=== PATIENT | female | born 1935 | race African-American/Black ===

== ENCOUNTER 2023-10-27 15:25 | Inpatient (IN) | payer OTHER ==
[2023-10-27] MEDS: SODIUM CHLORIDE 0.9% 500 ML INFUS.BAG IV ONE ×2 (18:12→20:33)
[2023-10-27 18:19] LABS: BASO % 0.2 % (0-2.0); HEMATOCRIT 31.6 % (32.4-45.2); HEMOGLOBIN 10.5 GM/dL (10.7-15.3); LYMPH % 8.8 % (8-40); MCH 29.7 pg (25.7-33.7); MCHC 33.2 g/dl (32.0-36.0); MEAN CELL VOLUME 89.2 fl (80-96); MEAN PLT VOLUME 7.3 fl (7.5-11.1); MONO % 7.5 % (3.8-10.2); NEUT % 83.5 % (42.8-82.8); PLATELET COUNT 419 10^3/uL (134-434); RBC 3.54 M/mm3 (3.60-5.2); RDW 14.1 % (11.6-15.6); WHITE BLOOD COUNT 12.5 K/mm3 (4.0-10.0)
[2023-10-27 18:24] LABS: INR 1.31 (0.83-1.09); PROTHROMBIN TIME (PATIENT) 14.7 SEC (9.7-13.0)
[2023-10-27 18:27] LABS: ACTIVATED PTT 31.2 SECONDS (25.2-36.5); VENOUS BASE EXCESS -4.7 mmol/L (-2-2); VENOUS PCO2 40.5 mmHg (38-52); VENOUS PH 7.33 (7.310-7.410)
[2023-10-27 18:37] LABS: POTASSIUM 4.2 mmol/L (3.5-5.1)
[2023-10-27 18:40] LABS: BLOOD UREA NITROGEN 23.4 mg/dL (7-18)
[2023-10-27 18:45] LABS: BILIRUBIN,TOTAL 0.6 mg/dL (0.2-1); TOT PROT 7.6 g/dl (6.4-8.2)
[2023-10-27 18:56] LABS: ALBUMIN 2.9 g/dl (3.4-5.0); ALK PHOS 79 U/L (45-117); ANION GAP 13 mmol/L (4-13); BILIRUBIN,TOTAL 0.7 mg/dL (0.2-1); BLOOD UREA NITROGEN 22.9 mg/dL (7-18); CALCIUM 8.9 mg/dL (8.5-10.1); CHLORIDE 102 mmol/L (98-107); CO2 21 mmol/L (21-32); GLUCOSE,RANDOM 108 mg/dL (74-106); POTASSIUM 4.4 mmol/L (3.5-5.1); SGOT/AST 21 U/L (15-37); SGPT/ALT 9 U/L (13-61); SODIUM 136 mmol/L (136-145); TOT PROT 7.6 g/dl (6.4-8.2)
[2023-10-27 20:43] LABS: EPI CELLS 21 /uL (0-25.1); HYALINE CASTS 3 /uL (0-3.1); PH,URINE 5.5 (5.0-8.0); URINE APPEARANCE CLEAR; URINE BACTERIA 202 /uL (0-1359); URINE BILIRUBIN NEGATIVE (NEGATIVE); URINE COLOR YELLOW; URINE GLUCOSE (UA) NEGATIVE (NEGATIVE); URINE KETONE 1+ (NEGATIVE); URINE LEUK ESTERASE 2+ (NEGATIVE); URINE NITRITE NEGATIVE (NEGATIVE); URINE PROTEIN 1+ (NEGATIVE); URINE WBC 33 /uL (0-25.8)
[2023-10-27 20:44] LABS: URINE RBC 24.2 /uL (0-23.9)
[2023-10-27] MEDS ORDERED: ACETAMINOPHEN INJECTION 100 ML IVPB ONE (20:45)
[2023-10-27 20:50] LABS: URINE BENZODIAZEPINES NEGATIVE (NEGATIVE)
[2023-10-27 20:51] LABS: COCAINE, UR NEGATIVE (NEGATIVE); METHADONE, UR NEGATIVE (NEGATIVE); OPIATES, URI NEGATIVE (NEGATIVE); PHENCYCLIDINE,URINE NEGATIVE (NEGATIVE); URINE AMPHETAMINES NEGATIVE (NEGATIVE); URINE BARBITURATES NEGATIVE (NEGATIVE)
[2023-10-27] MEDS: ACETAMINOPHEN 1000 MG/100 ML BAG IVPB ONE (20:57)
[2023-10-27] MEDS: MELATONIN 5 MG TABLETS PO ONE (22:12)
[2023-10-28] MEDS ORDERED: NICOTINE 7 MG/24 HOURS TOPICAL PATCH TD ONE (00:17)
[2023-10-28] MEDS ORDERED: CEFTRIAXONE 1 GM/50 ML BAG ONE (00:18)
[2023-10-28] MEDS: CEFTRIAXONE 1 GM in DEXTROSE 5%-WATER - 50 ML IVPB ONE (00:29)
[2023-10-28] MEDS: SODIUM CHLORIDE 1,000 ML IV SCH (00:29)
[2023-10-28] MEDS: NICOTINE 7 MG/24 HOURS TOPICAL PATCH TD ONE (00:29)
[2023-10-28] MEDS ORDERED: HALOPERIDOL LACTATE 5 MG/ML ONE (00:32)
[2023-10-28] MEDS: HALOPERIDOL LACTATE 5 MG/ML IM ONE (00:44)
[2023-10-28] MEDS ORDERED: traMADol HCL 50 MG TABLET PO PRN (01:24)
[2023-10-28] MEDS: ACETAMINOPHEN 500 MG TABLET (FP) PO SCH (01:47)
[2023-10-28] MEDS: MELATONIN 5 MG TABLETS PO ONE (01:48)
[2023-10-28] MEDS: DONEPEZIL HCL 5 MG TABLET (FP) PO ONE ×2 (01:58→11:16)
[2023-10-28 09:03] LABS: MCH 29.5 pg (25.7-33.7); MCHC 33.4 g/dl (32.0-36.0); MEAN CELL VOLUME 88.4 fl (80-96); MEAN PLT VOLUME 7.3 fl (7.5-11.1); PLATELET COUNT 383 10^3/uL (134-434); RBC 3.39 M/mm3 (3.60-5.2); RDW 13.5 % (11.6-15.6); WHITE BLOOD COUNT 8.4 K/mm3 (4.0-10.0)
[2023-10-28 09:30] LABS: CHLORIDE 105 mmol/L (98-107); POTASSIUM 3.6 mmol/L (3.5-5.1); SODIUM 139 mmol/L (136-145)
[2023-10-28 09:32] LABS: CALCIUM 8.4 mg/dL (8.5-10.1)
[2023-10-28] MEDS: NICOTINE 7 MG/24 HOURS TOPICAL PATCH TD SCH (09:32)
[2023-10-28 09:33] LABS: ANION GAP 8 mmol/L (4-13); BLOOD UREA NITROGEN 15.6 mg/dL (7-18); CO2 27 mmol/L (21-32); GLUCOSE,RANDOM 101 mg/dL (74-106); MAGNESIUM 1.9 mg/dL (1.8-2.4)
[2023-10-28 09:36] LABS: CREATININE 0.7 mg/dL (0.55-1.3); IRON SERUM 11 ug/dL (50-175); PHOSPHOROUS 3.7 mg/dL (2.5-4.9); TOTAL IRON BINDING CAPACITY 142 ug/dL (250-450)
[2023-10-28] MEDS ORDERED: PATIENT'S OWN MEDICATION (NON-FORMULARY) (Diclofenac Sodium 0.01 MG/MG Gel) TP SCH (10:00)
[2023-10-28] MEDS: CEFTRIAXONE 1 GM in DEXTROSE 5%-WATER - 50 ML IVPB SCH (21:26)
[2023-10-28] MEDS: DONEPEZIL HCL 5 MG TABLET (FP) PO SCH (21:26)
[2023-10-29] MEDS: MELATONIN 5 MG TABLETS PO ONE (03:12)
[2023-10-29] MEDS ORDERED: ACETAMINOPHEN 325 MG TABLET (FP) PO PRN (04:00)
[2023-10-29] MEDS: amLODIPine BESYLATE 5 MG TABLET (FP) PO SCH (09:59)
[2023-10-29 10:54] LABS: BASO % 0.4 % (0-2.0); EOS % 0.2 % (0-4.5); HEMATOCRIT 32.8 % (32.4-45.2); LYMPH % 10.2 % (8-40); MCH 29.8 pg (25.7-33.7); MCHC 33.6 g/dl (32.0-36.0); MEAN CELL VOLUME 88.6 fl (80-96); MEAN PLT VOLUME 7.4 fl (7.5-11.1); MONO % 5.1 % (3.8-10.2); NEUT % 84.1 % (42.8-82.8); PLATELET COUNT 525 10^3/uL (134-434); RDW 14.1 % (11.6-15.6); WHITE BLOOD COUNT 8.6 K/mm3 (4.0-10.0)
[2023-10-29 14:30] VITALS: BMI 17.2
[2023-10-30 08:18] LABS: BASO % 0.5 % (0-2.0); EOS % 1.3 % (0-4.5); HEMATOCRIT 28.9 % (32.4-45.2); HEMOGLOBIN 9.5 GM/dL (10.7-15.3); LYMPH % 17.8 % (8-40); MCH 29.3 pg (25.7-33.7); MEAN CELL VOLUME 88.8 fl (80-96); MEAN PLT VOLUME 7.3 fl (7.5-11.1); MONO % 5.2 % (3.8-10.2); NEUT % 75.2 % (42.8-82.8); PLATELET COUNT 467 10^3/uL (134-434); RBC 3.25 M/mm3 (3.60-5.2); RDW 14.3 % (11.6-15.6); WHITE BLOOD COUNT 7.4 K/mm3 (4.0-10.0)
[2023-10-30 12:25] VITALS: BP 131/52; PULSE 75; RESP 18; TEMP 98.6
== END 2023-10-30 13:45 | disposition home health service (06) | DRG 690 ==
LOC: JER 15:25 → JERBED 21:53 → J8W 10-28 01:09
PROVIDERS: ADMIT Internal Medicine; ATTEND Nurse Practitioner Acute Care
DX: N39.0 Urinary tract infection, site not specified (principal); S12.110A Anterior displaced Type II dens fracture, initial encounter for closed fracture; E44.0 Moderate protein-calorie malnutrition; Z68.1 Body mass index [BMI] 19.9 or less, adult; I10 Essential (primary) hypertension; D64.9 Anemia, unspecified; F03.90 Unspecified dementia, unspecified severity, without behavioral disturbance, psychotic disturbance, mood disturbance, and anxiety; X58.XXXA Exposure to other specified factors, initial encounter; Y93.89 Activity, other specified; Y92.89 Other specified places as the place of occurrence of the external cause; Y99.8 Other external cause status
CPT/HCPCS: 0241U-QW; 36415; 70450-TC; 71046-TC-FY; 72125-TC; 72141-TC; 74177-TC; 80048; 80053; 80307; 81003; 82550; 82607; 82728; 82803; 83540; 83550; 83605; 83690; 83735; 84100; 84439; 84443; 84484; 85025; 85027; 85610; 85730; 86850; 86900; 86901; 87040; 87086; 93005; 93010; 93970-TC; 97116-GP; 97161-GP; 99285-25; J0131; Q9967

== ENCOUNTER 2023-11-19 09:33 | Emergency (ER) | payer OTHER ==
[2023-11-19 09:40] VITALS: TEMP 98.4; BMI 17.4
[2023-11-19 10:19] VITALS: BP 120/48; PULSE 74; RESP 15
== END 2023-11-19 11:21 | disposition home or self-care (01) ==
LOC: JER 09:33
DX: L03.221 Cellulitis of neck (principal); L24.9 Irritant contact dermatitis, unspecified cause
CPT/HCPCS: 99283-25